=== PATIENT | male | born 1975 | race African-American/Black ===

== ENCOUNTER → 2019-12-23 | Outpatient (CLI) | payer MEDICARE, MEDICAID ==
[2019-12-23 11:26] LABS: SPERM MORPHOLOGY SENT TO REFERENC LAB
[2019-12-23 12:18] LABS: SPERM PROGRESSION 3
[2019-12-23 12:33] LABS: SPERM CONCENTRATION 50.1 X10^6/mL (>12.0)
== END ==
LOC: LAB 11:06
PROVIDERS: ATTEND Student in an Organized Health Care Education/Training Program
DX: N46.9 Male infertility, unspecified (principal)
CPT/HCPCS: 89320